=== PATIENT | female | born 1940 | race Caucasian/White ===

== ENCOUNTER → 2016-07-09 | Day surgery (SDC) | payer MEDICARE ==
[~2016-07-09] MED LIST: ACETAMINOPHEN 1000 MG/100 ML VIAL IV ONE; AMLO2.5T PO; ANAS1TAB PO; ASPI1TAB69 PO; ASPI81TA82 PO; BUPIVACAINE/EPINEPHRINE 0.5% PF 30 ML VIAL ONE; ESTR0.5T PO; FENO145T2 PO; FISH1000 PO; GLUCTAB PO; IRBE300T13 PO; ISOSULFAN BLUE 50 MG/5 ML VIAL SQ ONE; KETOROLAC TROMETHAMINE 30 MG/ML (IVP) VIAL ONE; KLOR20TA6 PO; LACTATED RINGER'S 1000 ML INJ 1,000 ML ONE; LEVO25TA4 PO; LIDOCAINE 1%/EPINEPHrine 1:100,000 SOLN 20 ML VIAL ONE; METF500T PO; METO50TA11 PO; MIDAZOLAM HCL 2 MG/2 ML VIAL ONE; MULTTAB67 PO; OMEGCAP PO; ONDANSETRON HCL 4 MG/2 ML VIAL IV PUSH ONE; POTA-163 PO; PROPOFOL 200 MG/20 ML AMP IV ONE; ROSU20 PO; SODIUM CHLORIDE 0.9% INJ 10 ML ONE; TAB-TAB PO; [UNRECOGNIZED DRUG - OTHER] PO; ceFAZolin 2 GM PREMIX 50 ML ONE
--- NOTE | 2016-07-11 08:37 | MP ---
cc: HERO PARKER M.D. DATE OF SURGERY 07/09/2016 PREOPERATIVE DIAGNOSIS Carcinoma the left breast. POSTOPERATIVE DIAGNOSIS Carcinoma the left breast. PROCEDURE Needle-localized wide excision left breast mass with cavity shaving and attempted left [place] lymph node biopsy. SURGEON Hero Parker MD VORTEX OPERATOR Willis Payne, MS-3 ANESTHESIA Local/MAC OPERATIVE FINDINGS AND PROCEDURE The patient was brought to the operating room and after having undergone needle localization of a mass in the left breast, which had been previously biopsied and found to be infiltrating ductal carcinoma. The nuclear medicine physicians attempted injection to identify a [place] node, but there was no identifiable node on lymphoscintigraphy. The patient was properly sedated by anesthesia and the left breast and axilla were prepped and draped in the usual sterile fashion. 1% lidocaine and epinephrine was used to infiltrate the skin for local anesthesia. An incision was made over the anterior surface of the left axilla and a 3 cm incision was carried down sharply through the subcutaneous tissue with cautery being is hemostasis. The incision was deepened into the axilla proper by blunt dissection and no palpable nodes were identifiable. Even with the navigator probe, there was no identifiable radioactivity in the axilla or the tail of the breast. There was still a large amount of radioactivity in the injection site itself. The axilla was packed off and attention then turned to the breast. 1% lidocaine and epinephrine was used to infiltrate the skin for local anesthesia. A curvilinear incision was made in the lower inner quadrant where the tumor was located. It was carried out sharply through the subcutaneous tissue with cautery being used for hemostasis. The incision was deepened into the breast parenchyma where the guidewire was grasped with a hemostat, amputated at the level of the skin, then brought within the wound. A core of tissue was dissected free from around the guidewire with that tissue then being sent for specimen mammography. The specimen was read as being adequate for the presence of the lesion. To assure further safety of margins, two separate cavity shavings were taken, one posterior to the specimen down to the capsule of the breast implant and the other inferior to the previous specimen again taken down to the implant. Hemostasis was then strictly assured with the cautery. Both incisions were then closed with interrupted 4-0 PDS subcuticular stitches. Steri-Strips and sterile drapes were placed. The patient was then taken from the operating room in satisfactory condition having tolerated the procedure without problem. Estimated blood loss was less than 10 mL. The instrument, sponge, and needle counts were reported as being correct x2 at the end of the procedure. MD BOLIVAR Arevalo/DAREN /4:10 PM /8:30 AM
== END | disposition home or self-care (01) ==
LOC: ESDC 09:30
PROVIDERS: ATTEND Surgery
DX: C50.912 Malignant neoplasm of unspecified site of left female breast (principal)
CPT/HCPCS: 00400; 01610; 19125; 38525; 88307; J0131; J0690; J1885; J2250; J2405; J3010; J7120; Q9968

== ENCOUNTER → 2016-08-13 | Day surgery (SDC) | payer MEDICARE ==
[~2016-08-13] VITALS: Ht 162.6 cm; Wt 72.1 kg
[~2016-08-13] MED LIST changes: -ACETAMINOPHEN 1000 MG/100 ML VIAL IV ONE; +ACETAMINOPHEN 1000 MG/100 ML VIAL IV SCH; -ASPI81TA82 PO; +BUPIVACAINE/EPINEPHRINE 0.5% 50 ML VIAL ONE; -BUPIVACAINE/EPINEPHRINE 0.5% PF 30 ML VIAL ONE; +CHLORHEXIDINE GLUCONATE 2 % 1 PACK (2 CLOTHS) TOPICAL PRN; +DO NOT ADM ANY ANTICOAGULANT DRUGS PRN; -ESTR0.5T PO; -FISH1000 PO; -GLUCTAB PO; +INSULIN HUMAN REGULAR 1,000 UNITS/10 ML VIAL SQ PRN; -ISOSULFAN BLUE 50 MG/5 ML VIAL SQ ONE; +KETOROLAC TROMETHAMINE 30 MG/ML (IVP) VIAL IV PUSH ONE; -KLOR20TA6 PO; -LACTATED RINGER'S 1000 ML INJ 1,000 ML ONE; +LACTATED RINGER'S 1000 ML IV PRN; -LIDOCAINE 1%/EPINEPHrine 1:100,000 SOLN 20 ML VIAL ONE; +METOPROLOL TARTRATE 25 MG TAB PO PRN; +MORPHINE SULFATE 4 MG/ML INJ IV PRN; +ONDANSETRON HCL 4 MG/2 ML VIAL IV PRN; +POVIDONE IODINE 5% (ANTISEPSIS KIT) 4 APPLICATIONS EACH NARE PRN; -ROSU20 PO; +SODIUM CHLORID 0.9% 500 ML IV PRN; -SODIUM CHLORIDE 0.9% INJ 10 ML ONE; +SODIUM CHLORIDE FLUSH BID IV FLUSH SCH; +SODIUM CHLORIDE FLUSH PRN IV FLUSH; -TAB-TAB PO; -[UNRECOGNIZED DRUG - OTHER] PO; +ceFAZolin 2 GM PREMIX 50 ML IV SCH; -ceFAZolin 2 GM PREMIX 50 ML ONE; +fentaNYL CITRATE 250 MCG/5 ML AMP ONE; +oxyCODONE/ACETAMINOPHEN 5 MG/325 MG TAB PO PRN
[2016-08-13 09:00] VITALS: BP 144/69; PULSE 68; RESP 18; TEMP 98.9; O2SAT 97
--- NOTE | 2016-08-13 11:39 | PD.OP ---
cc: Adalberto Salgado MD; Hero Orozco MD Operative Report Date of Surgery: August 13, 2016 Preoperative Diagnosis: Left breast cancer, s/p wide excision Postoperative Diagnosis: Left breast cancer, s/p wide excision Procedure: Re-excision left breast cancer Anesthesia: General Surgeon: Hero Orozco [employer](s): None Operation and Findings: Operative procedure: The patient brought to the operating room and after satisfactory general anesthesia been obtained, the left breast was prepped and draped in usual sterile fashion. The previous skin incision was seen to be well healed. Elliptical skin incision was marked with a sterile pen after which 0.5% Marcaine with epinephrine was used to infiltrate the skin for local anesthesia. The skin ellipse was made with sharply with a 15 blade knife and carried out through the subcutaneous tissues tissue, with the cautery being used for hemostasis. The skin and subcutaneous tissue as well as breast tissue were grasped with Allis forceps and a large area of tissue was dissected free to include the entire previous seroma cavity. The specimen was taken down to the breast implant capsule which was excised partially taken as well with the breast implant exposed. After removing the entire specimen sharply was sent for permanent pathology, marked with margins. Hemostasis was strictly assured after which the breast implant was inspected and found to be intact. Subcutaneous tissues tissue and skin were closed with interrupted 4-0 PDS subcutaneous stitches. Steri-Strips and sterile dressings were applied and the patient was then taken from the operating room, in satisfactory condition, having tolerated the procedure without problem. Estimated blood loss was less than 10 mL's. He instrument, sponge, and needle counts were reported as being correct 2 at the end of procedure. Hero Orozco MD August 13, 2016 11:39
[2016-08-13 12:20] VITALS: BP 129/68; PULSE 66; RESP 20; TEMP 97.4; O2SAT 95
== END | disposition home or self-care (01) ==
LOC: HSDC 08:01
PROVIDERS: ATTEND Surgery
DX: C50.312 Malignant neoplasm of lower-inner quadrant of left female breast (principal); Z17.0 Estrogen receptor positive status [ER+]; N18.3 Chronic kidney disease, stage 3 (moderate); I12.9 Hypertensive chronic kidney disease with stage 1 through stage 4 chronic kidney disease, or unspecified chronic kidney disease; E11.22 Type 2 diabetes mellitus with diabetic chronic kidney disease; E03.9 Hypothyroidism, unspecified; E78.5 Hyperlipidemia, unspecified; M85.80 Other specified disorders of bone density and structure, unspecified site; E83.52 Hypercalcemia; N28.9 Disorder of kidney and ureter, unspecified; H43.399 Other vitreous opacities, unspecified eye
CPT/HCPCS: 00400; 19301; 88307; J0131; J0690; J1885; J2250; J2405; J3010; J7120